=== PATIENT | female | born 1975 | race African-American/Black ===

== ENCOUNTER 2016-07-13 14:45 | Outpatient (CLI) | payer BC, OTHER ==
[2016-07-14 20:26] LABS: TEST RESULT REPORT (())
== END 2016-07-13 14:46 | disposition home or self-care (01) ==
LOC: LAB.WCP 14:45
PROVIDERS: ATTEND Physician Assistant Medical
DX: N89.8 Other specified noninflammatory disorders of vagina (principal)
CPT/HCPCS: 81599; 87480; 87510; 87660

== ENCOUNTER 2017-02-18 14:00 | Outpatient (CLI) | payer BC | END 2017-02-18 14:01 | disposition home or self-care (01) | LOC: LAB.R 14:00 | PROVIDERS: ATTEND Physician Assistant Medical | DX: N89.9 Noninflammatory disorder of vagina, unspecified (principal) | CPT/HCPCS: 81599; 87480; 87491; 87510; 87591; 87660 ==

== ENCOUNTER 2017-02-18 14:30 | Outpatient (CLI) | payer BC ==
[2017-02-19 12:41] LABS: HIV AG/AB 4TH GEN NON-REACTIVE (NON-REACTIVE)
[2017-02-19 13:58] LABS: HEPATITIS C ANTIBODY NON-REACTIVE (NON-REACTIVE)
[2017-02-22 12:51] LABS: HSV 1 IGG TYPE SPECIFIC AB 12.9 index; HSV 2 IGG TYPE SPECIFIC AB 14.3 index
== END 2017-02-18 14:31 | disposition home or self-care (01) ==
LOC: LAB.WCP 14:30
PROVIDERS: ATTEND Physician Assistant Medical
DX: Z11.4 Encounter for screening for human immunodeficiency virus [HIV] (principal); N89.9 Noninflammatory disorder of vagina, unspecified
CPT/HCPCS: 36415; 81599; 86592; 86695; 86696; 86780; 86803; 87389; 87480; 87491; 87510; 87591; 87660